=== PATIENT | female | born 1975 | race Caucasian/White ===

== ENCOUNTER → 2021-07-09 | Outpatient (CLI) | payer BC ==
[2021-07-10 09:13] LABS: COMPLEMENT C3, SERUM 172 mg/dL (82-167); COMPLEMENT C4, SERUM 25 mg/dL (12-38); HBSAG SCREEN Negative (Negative); HCV ANTIBODY <0.1 (0.0-0.9)
[2021-07-10 10:13] LABS: SARS COV-2 IGG AB Negative (Negative)
[2021-07-10 11:13] LABS: CREATININE, URINE 59.1 mg/dL (Not Estab.)
[2021-07-10 15:08] LABS: SARS COV-2 IGM AB Positive (Negative)
[2021-07-11 09:10] LABS: ANTI-DSDNA ANTIBODIES 2 IU/mL (0-9)
[2021-07-12 11:11] LABS: ANTIGLOMERULAR BM AB 3 units (0-20)
[2021-07-13 14:10] LABS: A/G RATIO 1.1 (0.7-1.7); ALBUMIN 3.6 g/dL (2.9-4.4); ALPHA-1-GLOBULIN 0.3 g/dL (0.0-0.4); ALPHA-2-GLOBULIN 0.8 g/dL (0.4-1.0); BETA GLOBULIN 1.1 g/dL (0.7-1.3); GAMMA GLOBULIN 1.2 g/dL (0.4-1.8); GLOBULIN, TOTAL 3.4 g/dL (2.2-3.9); IMMUNOGLOBULIN A, QN, SERUM 193 mg/dL (87-352); IMMUNOGLOBULIN G, QN, SERUM 1006 mg/dL (586-1602); IMMUNOGLOBULIN M, QN, SERUM 189 mg/dL (26-217); M-SPIKE Not Observed g/dL (Not Observed)
[2021-07-13 16:11] LABS: ANTIMYELOPEROXIDASE (MPO) ABS <9.0 U/mL (0.0-9.0); ANTIPROTEINASE 3 (PR-3) ABS <3.5 U/mL (0.0-3.5); ATYPICAL PANCA <1:20 titer (Neg:<1:20); CYTOPLASMIC (C-ANCA) <1:20 titer (Neg:<1:20); PERINUCLEAR (P-ANCA) <1:20 titer (Neg:<1:20)
== END ==
LOC: EXRD 06-23 11:00 → US 13:21
PROVIDERS: Internal Medicine Nephrology
DX: Z01.84 Encounter for antibody response examination (principal); N17.9 Acute kidney failure, unspecified; Z87.440 Personal history of urinary (tract) infections; N28.89 Other specified disorders of kidney and ureter
CPT/HCPCS: 36415; 80053; 82043; 82570; 82784; 83520; 84155; 84156; 84165; 86038; 86160; 86162; 86225; 86256; 86334; 86769; 86803; 87077; 87086; 87186; 87340; 89050

== ENCOUNTER → 2021-08-05 | Outpatient (CLI) | payer BC ==
[~2021-08-05] MED LIST: HYDROCODON-ACE1 EAC4 PO; MACROBID 100 M100 MG PO; OMNICEF 300 MG300 MG PO
== END ==
LOC: LAB 15:02
PROVIDERS: Internal Medicine Nephrology
DX: N17.9 Acute kidney failure, unspecified (principal)
CPT/HCPCS: 36415; 80053; 82570; 84156; 85610; 85730

== ENCOUNTER → 2021-08-16 | Outpatient (CLI) | payer BC | LOC: CT 08-13 08:00 | PROVIDERS: Internal Medicine Nephrology | DX: I12.9 Hypertensive chronic kidney disease with stage 1 through stage 4 chronic kidney disease, or unspecified chronic kidney disease (principal); N18.9 Chronic kidney disease, unspecified; N17.9 Acute kidney failure, unspecified | CPT/HCPCS: 36415; 77012; 80053; 81001; 82570; 84156; 85610; 85730; 87086; 88305; 88313; 88346; 88348 ==

== ENCOUNTER 2021-08-17 10:16 | Emergency (ER) | payer BC ==
[~2021-08-17 10:16] MED LIST changes: -HYDROCODON-ACE1 EAC4 PO; -OMNICEF 300 MG300 MG PO
[2021-08-17 12:40] LABS: HEMOGLOBIN 13.3 gm/dl (12.3-15.3); RED BLOOD COUNT 4.55 M/UL (4.00-5.10); WHITE BLOOD COUNT 8.6 K/UL (4.5-11.0)
[2021-08-17] MEDS ORDERED: OMNICEF 300 MG300 MG PO (13:59)
[2021-08-17] MEDS ORDERED: HYDROCODON-ACE1 EAC4 PO (13:59)
== END 2021-08-17 14:44 | disposition home or self-care (01) ==
LOC: ER1 10:16
PROVIDERS: Emergency Medicine
DX: N39.0 Urinary tract infection, site not specified (principal); N28.9 Disorder of kidney and ureter, unspecified; N85.00 Endometrial hyperplasia, unspecified
CPT/HCPCS: 80053; 81001; 85025; 87077; 87086; 87186; 96374; 96375; 99284; J0696; J2270; J2405

== ENCOUNTER → 2021-08-23 | Outpatient (CLI) | payer BC ==
[~2021-08-23] MED LIST changes: +HYDROCODON-ACE1 EAC4 PO; +OMNICEF 300 MG300 MG PO
== END ==
LOC: LAB 12:28
DX: Z87.440 Personal history of urinary (tract) infections (principal)
CPT/HCPCS: 81001; 87086

== ENCOUNTER → 2021-10-20 | Outpatient (CLI) | payer BC | LOC: LAB 10:16 | PROVIDERS: Internal Medicine Nephrology | DX: N17.9 Acute kidney failure, unspecified (principal) | CPT/HCPCS: 36415; 80053 ==

== ENCOUNTER 2022-04-14 12:28 | Emergency (ER) | payer BC ==
[2022-04-14 14:06] LABS: HEMOGLOBIN 13.3 gm/dl (12.3-15.3); RED BLOOD COUNT 4.57 M/UL (4.00-5.10); WHITE BLOOD COUNT 4.1 K/UL (4.5-11.0)
[2022-04-14] MEDS ORDERED: DELSYM30 MG/5 ML PO (17:27)
[2022-04-14] MEDS ORDERED: NORFLEX 100 MG100 MG PO (17:27)
[2022-04-14] MEDS ORDERED: PROVENTIL HFA6.7 GM INH (17:27)
== END 2022-04-14 17:45 | disposition home or self-care (01) ==
LOC: ER1 12:28
PROVIDERS: Physician Assistant Medical
DX: U07.1 COVID-19 (principal); N18.9 Chronic kidney disease, unspecified; M54.50 Low back pain, unspecified
CPT/HCPCS: 71045; 72100; 80053; 81001; 82550; 82553; 83605; 84484; 85025; 85379; 93005; 94664; 94760; 96374; 96375; 99284; J1885; J2930; Q9967